=== PATIENT | male | born 1990 | race Caucasian/White ===

== ENCOUNTER → 2017-02-18 | Outpatient (CLI) | payer BC ==
[~2017-02-18] VITALS: Ht 182.9 cm; Wt 104.3 kg
[~2017-02-18] MED LIST: RANI150T6 PO; SINCALIDE 2 MCG in IV NORMAL SALINE 50ML 30 ML IV ONE
--- NOTE | 2017-02-18 11:46 | RAD ---
Limited abdominal ultrasound 02/18/2017 at 0943 hours Indication: Abdominal pain Comparison: None available Technique: Sonographic imaging of the right upper quadrant was performed utilizing grayscale and color Doppler. Findings: Liver is homogenous in echotexture without evidence for a focal mass lesion. Liver measures 18.0 cm. There is hepatopedal flow within the portal venous system. The gallbladder is normal in appearance without gallstones, gallbladder wall thickening or pericholecystic fluid. The common bile duct measures 3 mm. Right kidney measures 10.0 x 5.8 x 4.2 cm. There is no hydronephrosis or solid/cystic mass. No renal calculi. Results portions of the pancreas are normal. Aorta and IVC are within normal limits. No free fluid is identified in the right upper quadrant. Impression: No sonographic evidence for cholelithiasis.
--- NOTE | 2017-02-18 12:54 | RAD ---
Hepatobiliary scan 02/18/2017 at 1023 hours Indication: Abdominal pain Comparison: Abdominal ultrasound 02/18/2017 Technique: 5.5 mCi Choletec was administered intravenously. 2 mcg of Sincalide was administered. Findings: There is normal hepatobiliary uptake of radiotracer from the blood pool. There is normal radiotracer uptake identified within the gallbladder. There is prompt transit of radiotracer into the small bowel without evidence for enterogastric reflux. Gallbladder ejection fraction is 44.1%. Impression: Abnormal gallbladder ejection fraction of 44.1%. Findings are borderline and may reflect chronic cholecystitis.
== END | disposition home or self-care (01) ==
LOC: US 09:16
PROVIDERS: ATTEND Internal Medicine Gastroenterology
DX: R10.11 Right upper quadrant pain (principal)
CPT/HCPCS: 76705; 78226; 96374; 96375; A9537; J2805

== ENCOUNTER 2017-11-28 17:41 | Inpatient (IN) | payer BC ==
[~2017-11-28] VITALS: Ht 182.9 cm; Wt 108.0 kg
[~2017-11-28 17:41] MED LIST changes: +RANI150T21 PO; -RANI150T6 PO; -SINCALIDE 2 MCG in IV NORMAL SALINE 50ML 30 ML IV ONE
--- NOTE | 2017-11-28 17:45 | ED.ADGEN ---
Past History Past Medical History: Depression Past Surgical History: Other Smoking: Cigarettes Alcohol Use: Occasionally Drug Use: Amphetamine, Cocaine, Heroin, Marijuana, Methamphetamine, Phencyclidine, Other Social History Narrative: JUDAH Faulkner Adult General Chief Complaint Chief Complaint ".. I guess I want to get my mind clear... I have depression.. some suicide thoughts...".. " I did about 1/2 of Ketamine at about noon... " .."It is my favorite drug...".. " I ve been to Rehab...before but it been a long time ... I did okary for a while..."".. I feel dehydrated" HPI HPI Patient is a 27 year old male who presents with above complaint depression, suicidal ideation, and polysubstance abuse. Patient states he has an underlying history of depression and did attempt suicide one time previously. Patient denies any trauma other than he is grape juice right hand where he destroyed his guitar. Mother and sister at bedside. No recent travel. No history immunosuppression. Confusion and difficulty in focusing his thoughts. No specific suicide plan . Mother states last night when he had ripped up his shirt and was going to use it may himself. Review of Systems Review of Systems Constitutional: Denies fever or chills [] Eyes: Denies change in visual acuity, redness, or eye pain [] HENT: Denies nasal congestion or sore throat [] Respiratory: Denies cough or shortness of breath [] Cardiovascular: No additional information not addressed in HPI [] GI: Denies abdominal pain, nausea, vomiting, bloody stools or diarrhea [] : Denies dysuria or hematuria [] Musculoskeletal: Denies back pain or joint pain [] Integument: Denies rash or skin lesions [] Neurologic: Denies headache, focal weakness or sensory changes []complaints of confusion- after doing a half gram of ketamine Endocrine: Denies polyuria or polydipsia [] All other systems were reviewed and found to be within normal limits, except as documented in this note. Family History Family History Noncontributory Current Medications Current Medications Current Medications Medications (Trade) Dose Ordered Sig/Susie Start Time Stop Time Status Last Admin Dose Admin Multivitamins/ Minerals 10 ml/ Folic Acid 1 mg/ Thiamine HCl 100 mg/Dextrose/ Lactated Ringer's 1,011.2 ml @ 0 mls/hr 1X ONCE 11/28/17 18:45 11/28/17 18:46 DC 11/28/17 18:43 1,000 MLS/HR See nursing for home meds Allergies Allergies Allergies Coded Allergies Type Severity Reaction Last Updated Verified No Known Drug Allergies 02/18/17 No Physical Exam Physical Exam Constitutional: Moderately acute distress, non-toxic appearance. [] HENT: Normocephalic, atraumatic, bilateral external ears normal, oropharynx moist, no oral exudates, nose normal. [] Eyes: PERRLA, EOMI, conjunctiva normal, no discharge. [] Neck: Normal range of motion, no tenderness, supple, no stridor. [] Cardiovascular: Tachycardia Heart rate regular rhythm, no murmur [] Lungs & Thorax: Bilateral breath sounds clear to auscultation [] Abdomen: Bowel sounds normal, soft, no tenderness, no masses, no pulsatile masses. [] Skin: Warm, dry, no erythema, no rash. [] Back: No tenderness, no CVA tenderness. [] Extremities: No tenderness, no cyanosis, no clubbing, ROM intact, no edema. [] Abrasions to right hand Neurologic: Alert and oriented X 3, normal motor function, normal sensory function, no focal deficits noted. [] Psychologic: Affect anxious, judgement somewhat limited insight, mood depressed. Current Patient Data Vital Signs Vital Signs Date Time Temp Pulse Resp B/P (MAP) Pulse Ox O2 Delivery O2 Flow Rate FiO2 11/28/17 19:56 103 18 121/77 (92) 99 Room Air 11/28/17 18:05 98.1 Lab Results Laboratory Tests Test 11/28/17 18:19 11/28/17 18:22 11/28/17 19:05 White Blood Count 10.9 x10^3/uL (4.0-11.0) Red Blood Count 5.68 x10^6/uL (4.30-5.70) Hemoglobin 17.9 g/dL (13.0-17.5) H Hematocrit 51.5 % (39.0-53.0) Mean Corpuscular Volume 91 fL (79-100) Mean Corpuscular Hemoglobin 31 pg (25-35) Mean Corpuscular Hemoglobin Concent 35 g/dL (31-37) Red Cell Distribution Width 13.1 % (11.5-14.5) Platelet Count 248 x10^3/uL (140-400) Neutrophils (%) (Auto) 63 % (31-73) Lymphocytes (%) (Auto) 25 % (24-48) Monocytes (%) (Auto) 7 % (0-9) Eosinophils (%) (Auto) 5 % (0-3) H Basophils (%) (Auto) 1 % (0-3) Neutrophils # (Auto) 6.8 x10^3uL (1.8-7.7) Lymphocytes # (Auto) 2.7 x10^3/uL (1.0-4.8) Monocytes # (Auto) 0.8 x10^3/uL (0.0-1.1) Eosinophils # (Auto) 0.5 x10^3/uL (0.0-0.7) Basophils # (Auto) 0.1 x10^3/uL (0.0-0.2) Prothrombin Time 10.6 SEC (9.4-11.4) Prothrombin Time INR 1.0 (0.9-1.1) PTT 27 SEC (23-33) Sodium Level 147 mmol/L (136-145) H Potassium Level 3.7 mmol/L (3.5-5.1) Chloride Level 109 mmol/L (98-107) H Carbon Dioxide Level 24 mmol/L (21-32) Anion Gap 14 (6-14) Blood Urea Nitrogen 7 mg/dL (8-26) L Creatinine 0.9 mg/dL (0.7-1.3) Estimated GFR (Cockcroft-Gault) 102.0 Glucose Level 82 mg/dL (70-99) Calcium Level 9.0 mg/dL (8.5-10.1) Magnesium Level 2.1 mg/dL (1.8-2.4) Troponin I Quantitative < 0.017 ng/mL (0-0.055) Salicylates Level 4.3 mg/dL (2.8-20.0) Salicylate Last Dose Date Unknown Salicylate Last Dose Time Unknown Acetaminophen Level < 2.0 mcg/mL (10-30) L Acetaminophen Last Dose Date Unknown Acetaminophen Last Dose Time Unknown Ethyl Alcohol Level 90 mg/dL (0-10) H Urine Collection Type Unknown Urine Color Straw Urine Clarity Clear Urine pH 6.0 Urine Specific [place] <=1.005 Urine Protein Neg (NEG-TRACE) Urine Glucose (UA) Neg mg/dL (NEG) Urine Ketones (Stick) Neg mg/dL (NEG) Urine Blood Neg (NEG) Urine Nitrite Neg (NEG) Urine Bilirubin Neg (NEG) Urine Urobilinogen Dipstick 0.2 mg/dL (0.2 mg/dL) Urine Leukocyte Esterase Neg (NEG) Urine RBC Rare /HPF (0-2) Urine WBC Occ /HPF (0-4) Urine Squamous Epithelial Cells Occ /LPF Urine Bacteria 0 /HPF (0-FEW) Urine Opiates Screen Neg (NEG) Urine Methadone Screen Neg (NEG) Urine Barbiturates Neg (NEG) Urine Phencyclidine Screen Neg (NEG) Urine Amphetamine/Methamphetamine Neg (NEG) Urine Benzodiazepines Screen Pos (NEG) Urine Cocaine Screen Pos (NEG) Urine Cannabinoids Screen Pos (NEG) Urine Ethyl Alcohol Pos (NEG) Lactic Acid Level 1.9 mmol/L (0.4-2.0) EKG EKG My interpretation of EKG shows a sinus tachycardia at 101 bpm. There is some nonspecific contour abnormalities anterior lateral leads. But no findings of acute STEMI with contralateral changes.[] Radiology/Procedures Radiology/Procedures I interpretation of chest x-ray shows[] Course & Med Decision Making Course & Med Decision Making Pertinent Labs and Imaging studies reviewed. (See chart for details) Telepsych. Eval. - Dr. Zainab Garcia MD- See Report for details. Recommend Hospital Admit until clear of Polysubstance- possible placement in AM Discussed presentation, testing and tx. plan with Dr. Vigil- Consult Dr. Mccann in AM. [] Final Impression Final Impression 1. Suicidal Ideation 2. []Depression 3. Polysubstance Abuse 4. Confusion 5. Dehydration Dragon Disclaimer Dragon Disclaimer This electronic medical record was generated, in whole or in part, using a voice recognition dictation system. NICKOLAS POTTS MD November 28, 2017 17:45
--- NOTE | 2017-11-28 18:18 | EKG ---
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
[2017-11-28] MEDS ORDERED: MVI, ADULT NO.4 WITH VIT K 10 ML, FOLIC ACID 1 MG, THIAMINE 100 MG in IV DEXTROSE 5%-LA... IV ONE ×4 (18:45)
[2017-11-28 18:46] LABS: BASO # 0.1 x10^3/uL (0.0-0.2); BASO % 1 % (0-3); EOS # 0.5 x10^3/uL (0.0-0.7); EOS % 5 % (0-3); HEMATOCRIT 51.5 % (39.0-53.0); HEMOGLOBIN 17.9 g/dL (13.0-17.5); LYMPH # 2.7 x10^3/uL (1.0-4.8); LYMPH % 25 % (24-48); MEAN CORPUSCULAR HEMOGLOBIN 31 pg (25-35); MEAN CORPUSCULAR HGB CONC 35 g/dL (31-37); MEAN CORPUSCULAR VOLUME 91 fL (79-100); MONO # 0.8 x10^3/uL (0.0-1.1); MONO % 7 % (0-9); NEUT # 6.8 x10^3uL (1.8-7.7); NEUT % 63 % (31-73); PLATELET COUNT 248 x10^3/uL (140-400); RED BLOOD COUNT 5.68 x10^6/uL (4.30-5.70); RED CELL DISTRIBUTION WIDTH 13.1 % (11.5-14.5); WHITE BLOOD COUNT 10.9 x10^3/uL (4.0-11.0)
[2017-11-28 18:48] LABS: CREATININE 0.9 mg/dL (0.7-1.3); ETHANOL 90 mg/dL (0-10); MAGNESIUM 2.1 mg/dL (1.8-2.4); POTASSIUM 3.7 mmol/L (3.5-5.1); SALIC 4.3 mg/dL (2.8-20.0)
[2017-11-28 18:50] LABS: BARBITURATES NEG (NEG); BENZODIAZEPINES POS (NEG); CANNABINOIDS POS (NEG); COCAINE POS (NEG); METHADONE NEG (NEG); OPIATES NEG (NEG); PHENCYCLIDINE NEG (NEG)
[2017-11-28 18:51] LABS: ACETAMIN < 2.0 mcg/mL (10-30)
[2017-11-28 18:51] LABS: AMPHETAMINE/METHAMPHETAMINE NEG (NEG)
[2017-11-28 18:56] LABS: CLARITY,URINE CLEAR; COLOR,URINE STRAW; GLUCOSE,URINE NEG (NEG)
[2017-11-28 18:57] LABS: BACTERIA,URINE 0 /HPF (0-FEW); BILIRUBIN,URINE NEG (NEG); NITRITE,URINE NEG (NEG); RBC,URINE RARE /HPF (0-2); SQUAMOUS EPITHELIAL CELL,UR OCC /LPF; UROBILINOGEN,URINE 0.2 mg/dL (0.2 mg/dL); WBC,URINE OCC /HPF (0-4)
--- NOTE | 2017-11-28 22:16 | RAD ---
PA and lateral chest radiographs 11/28/2017 CLINICAL HISTORY: Overdose. Chest pain. Two PA and a lateral digital radiographs of the chest were obtained. The cardiac and mediastinal silhouettes are within normal limits in size and configuration. No acute pulmonary infiltrate is seen. No pleural effusion or pneumothorax is noted. IMPRESSION: No radiographic evidence of active cardiac pulmonary disease. Electronically signed by: Wan Martinez MD (11/28/2017 10:13 PM) [facility]
[2017-11-28] MEDS: IV RINGERS SOLUTION,LACTATED 1,000 ML IV SCH (23:46)
[2017-11-29 00:01] LABS: ACETAMIN < 2.0 mcg/mL (10-30); SALIC 3.2 mg/dL (2.8-20.0)
[2017-11-29 00:03] VITALS: BP 121/76
[2017-11-29] MEDS: IV RINGERS SOLUTION,LACTATED 1,000 ML IV SCH ×4 (02:15→17:25)
[2017-11-29 06:12] VITALS: BP 106/62
[2017-11-29 06:24] LABS: CALCIUM 8.6 mg/dL (8.5-10.1); CREATININE 0.9 mg/dL (0.7-1.3); POTASSIUM 3.7 mmol/L (3.5-5.1)
[2017-11-29 06:35] LABS: BASO % 1 % (0-3); EOS # 0.5 x10^3/uL (0.0-0.7); EOS % 5 % (0-3); HEMOGLOBIN 16.6 g/dL (13.0-17.5); LYMPH # 2.9 x10^3/uL (1.0-4.8); LYMPH % 28 % (24-48); MEAN CORPUSCULAR HEMOGLOBIN 31 pg (25-35); MEAN CORPUSCULAR HGB CONC 35 g/dL (31-37); MEAN CORPUSCULAR VOLUME 91 fL (79-100); MONO # 0.6 x10^3/uL (0.0-1.1); MONO % 6 % (0-9); NEUT # 6.4 x10^3uL (1.8-7.7); NEUT % 61 % (31-73); PLATELET COUNT 233 x10^3/uL (140-400); RED CELL DISTRIBUTION WIDTH 12.7 % (11.5-14.5); WHITE BLOOD COUNT 10.5 x10^3/uL (4.0-11.0)
[2017-11-29 07:40] VITALS: BP 137/84
[2017-11-29] MEDS ORDERED: NICOTINE 21MG PATCH. TD SCH (10:00)
[2017-11-29] MEDS ORDERED: ACETAMINOPHEN 500 MG TABLET PO PRN (10:00)
[2017-11-29] MEDS ORDERED: chlordiazePOXIDE HCL 25 MG CAPSULE PO PRN (10:00)
[2017-11-29 10:16] LABS: ALBUMIN 3.2 g/dL (3.4-5.0); DIRECT BILIRUBIN 0.1 mg/dL (0.0-0.2); TOTAL BILIRUBIN 0.6 mg/dL (0.2-1.0); TOTAL PROTEIN 6.1 g/dL (6.4-8.2)
[2017-11-29] MEDS ORDERED: ONDANSETRON ODT 4 MG TAB.RAPDIS PO PRN (10:30)
--- NOTE | 2017-11-29 11:44 | RAD ---
History: Right hand pain. Comparison: None. Findings: PA and oblique lateral views of the right hand. Evaluation for acute traumatic injury is limited by lack of 3rd view. No acute fracture or dislocation is identified. No erosive changes are seen. No significant degeneration is identified. Impression: Unremarkable right hand radiographs. Electronically signed by: Khoa Hughes MD (11/29/2017 11:41 AM) [facility]
[2017-11-29] MEDS ORDERED: KETOROLAC 30 MG/ML VIAL. IV PRN (12:45)
[2017-11-29 16:33] VITALS: BP 130/71
--- NOTE | 2017-11-29 18:37 | HP ---
ADMIT DATE: 11/28/2017 HISTORY OF PRESENT ILLNESS: A 27-year-old gentleman came in through the Emergency Room markedly intoxicated. The patient is depressed, has suicidal ideation. He did about 1/2 something or other of ketamine, his favorite drug as well as cocaine, amphetamines, marijuana and so forth. The patient was admitted for polysubstance abuse, suicidal ideation, and the like. He was placed on a CIWA protocol as well as consult with Psychiatry as well. PAST MEDICAL HISTORY: Severe depression. FAMILY HISTORY: Depression. SOCIAL HISTORY: He smokes cigarettes, occasional alcohol, but mostly amphetamine, cocaine, heroin, marijuana, methamphetamine, phencyclidine, and ketamine. ALLERGIES: The patient has no known drug allergies. REVIEW OF SYSTEMS: Outside of a marked depression and confusion. Denies chest pain, shortness of breath. Denies abdominal pain. Denies any melena, hematemesis, and neurologically intact. Did have some right hand injury as he was hitting a wall, I believe. PHYSICAL EXAMINATION: GENERAL: This is a well-developed, well-nourished male, looks very unkempt. VITAL SIGNS: Blood pressure 130/70, respiration 18, pulse 71, temperature 98.3. HEENT: The patient's head was atraumatic, normocephalic. Eyes: PERRLA without jaundice. Mouth and throat were normal. NECK: Supple. LUNGS: Clear. CARDIOVASCULAR: Regular sinus rhythm. ABDOMEN: Right hand sore and tender. Abdomen is soft and nontender. EXTREMITIES: No clubbing, cyanosis or edema. NEUROLOGIC: Alert, but depressed, poor content of his speech and sometimes not making much in the way of sense. The patient otherwise was placed on a CIWA protocol. LABORATORY DATA: His CBC and chemistries were basically unremarkable except for the low albumin and protein and of course toxicology report showing signs of benzos, cocaine, marijuana, and alcohol. Ketamine was not tested for. UA was unremarkable. IMPRESSION: Polysubstance abuse, depression with suicidal ideation. The patient was placed on Clinical [place] Withdrawal Assessment of Alcohol and suicidal precautions and consult with Psychiatry, keep him in the Intensive Care Unit for close monitoring. MODESTA ZAFAR MD DR: YENNI/gordon JOB#: [id number] / [id number]
--- NOTE | 2017-11-29 18:55 | PDOC ---
Exam Note: [place]o Note: Please also refer to the separate dictated note~for this date of service dictated separately.~Patient seen individually. Discussed the patient with Nursing staff reviewed the chart.~Reviewed interim history and current functioning. Reviewed vital signs,~Labs/ Radiology~and current medications noted below. Continue current treatment with the changes noted in the dictated addendum note Assessment: Vital Signs: Vital Signs Date Time Temp Pulse Resp B/P (MAP) Pulse Ox O2 Delivery O2 Flow Rate FiO2 11/29/17 16:33 98.3 71 18 130/71 (90) 94 Room Air I&O Intake and Output 11/29/17 07:00 Intake Total 2078.2 ml Balance 2078.2 ml Intake Oral 70 ml IV Total 2008.2 ml # Voids 2 # Bowel Movements 1 Labs: Laboratory Tests Test 11/28/17 19:05 11/28/17 23:40 11/29/17 05:48 Lactic Acid Level 1.9 mmol/L (0.4-2.0) Salicylates Level 3.2 mg/dL (2.8-20.0) Salicylate Last Dose Date Unknown Salicylate Last Dose Time Unknown Acetaminophen Level < 2.0 mcg/mL (10-30) L Acetaminophen Last Dose Date Unknown Acetaminophen Last Dose Time Unknown White Blood Count 10.5 x10^3/uL (4.0-11.0) Red Blood Count 5.30 x10^6/uL (4.30-5.70) Hemoglobin 16.6 g/dL (13.0-17.5) Hematocrit 48.0 % (39.0-53.0) Mean Corpuscular Volume 91 fL (79-100) Mean Corpuscular Hemoglobin 31 pg (25-35) Mean Corpuscular Hemoglobin Concent 35 g/dL (31-37) Red Cell Distribution Width 12.7 % (11.5-14.5) Platelet Count 233 x10^3/uL (140-400) Neutrophils (%) (Auto) 61 % (31-73) Lymphocytes (%) (Auto) 28 % (24-48) Monocytes (%) (Auto) 6 % (0-9) Eosinophils (%) (Auto) 5 % (0-3) H Basophils (%) (Auto) 1 % (0-3) Neutrophils # (Auto) 6.4 x10^3uL (1.8-7.7) Lymphocytes # (Auto) 2.9 x10^3/uL (1.0-4.8) Monocytes # (Auto) 0.6 x10^3/uL (0.0-1.1) Eosinophils # (Auto) 0.5 x10^3/uL (0.0-0.7) Basophils # (Auto) 0.0 x10^3/uL (0.0-0.2) Sodium Level 145 mmol/L (136-145) Potassium Level 3.7 mmol/L (3.5-5.1) Chloride Level 108 mmol/L (98-107) H Carbon Dioxide Level 28 mmol/L (21-32) Anion Gap 9 (6-14) Blood Urea Nitrogen 9 mg/dL (8-26) Creatinine 0.9 mg/dL (0.7-1.3) Estimated GFR (Cockcroft-Gault) 102.0 Glucose Level 99 mg/dL (70-99) Calcium Level 8.6 mg/dL (8.5-10.1) Total Bilirubin 0.6 mg/dL (0.2-1.0) Direct Bilirubin 0.1 mg/dL (0.0-0.2) Aspartate Amino Transferase (AST) 13 U/L (15-37) L Alanine Aminotransferase (ALT) 19 U/L (16-63) Alkaline Phosphatase 61 U/L (46-116) Total Protein 6.1 g/dL (6.4-8.2) L Albumin 3.2 g/dL (3.4-5.0) L Current Medications: Meds: Current Medications Multivitamins/ Minerals 10 ml/ Folic Acid 1 mg/ Thiamine HCl 100 mg/Dextrose/ Lactated Ringer's 1,011.2 ml @ 0 mls/hr 1X ONCE IV Last administered on at 18:43; Start 11/28/17 at 18:45; Stop 11/28/17 at 18:46; Status DC Lactated Ringer's 1,000 ml @ 200 mls/hr Q5H IV Last administered on 11/29/17at 17:25; Start 11/28/17 at 21:15 Famotidine (Pepcid) 20 mg BID PO ; Start 11/29/17 at 21:00 Acetaminophen (Tylenol) 1,000 mg PRN Q6HRS PRN PO pain; Start 11/29/17 at 10:00 Multivitamins/ Minerals 10 ml/ Thiamine HCl 100 mg/Folic Acid 1 mg/Sodium Chloride 1,011.2 ml @ 100 mls/ hr DAILY IV ; Start 11/30/17 at 09:00; Stop at 08:59 Chlordiazepoxide (Librium) 50 mg PRN Q1HR PRN PO For CIWA 8-14; Start 11/29/17 at 10:00 Nicotine (Nicoderm Cq 21mg) 1 patch DAILY TD Last administered on 11/29/17at 10: 22; Start 11/29/17 at 10:00 Ondansetron HCl (Zofran Odt) 4 mg PRN Q6HRS PRN PO NAUSEA/VOMITING; Start 11/29 at 10:30 Ketorolac Tromethamine (Toradol) 30 mg PRN Q6HRS PRN IV PAIN Last administered on 11/29/17at 15:54; Start 11/29/17 at 12:45; Stop 12/04/17 at 12:44 Active Scripts Active Reported Zantac (Ranitidine Hcl) 150 Mg Tablet 1 Tab PO BID I have reviewed the current psychotropics carefully including drug interactions. Risk benefit ratio favors no change other than as noted in my dictated progress note. Diagnosis: Problems: (1) Anxiety disorder (2) Alcohol withdrawal syndrome (3) Alcohol dependence (4) Major depressive disorder, recurrent episode (5) Suicide ideation JOSE ARMANDO PEDERSEN MD November 29, 2017 18:55
[2017-11-29] MEDS ORDERED: FAMOTIDINE 20 MG TABLET PO SCH (21:00)
[2017-11-30] MEDS ORDERED: MVI, ADULT NO.4 WITH VIT K 10 ML, THIAMINE 100 MG, FOLIC ACID 1 MG in IV NORMAL SALINE ... IV SCH ×4 (09:00)
--- NOTE | 2017-12-01 18:11 | CONS ---
DATE OF CONSULTATION: 11/29/2017 This is a late entry for 11/29/2017 and covers the elements not covered in my initial note of 11/29/2017. IDENTIFYING DATA: The patient is a 27-year-old male seen in ICU bed 3, [facility], for a psychiatric consult requested by Dr. Vigil after the patient was admitted with depression, history of polysubstance abuse, making suicidal statements at admission while he was intoxicated. I met with the patient individually and later talked over the telephone with his mother who is closely involved in his care. Discussed with nursing staff, reviewed the chart. CHIEF COMPLAINT: "Nothing has been working out. 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 I have been drinking about a gallon of liquor a week." HISTORY OF PRESENT ILLNESS: The patient denies any blackouts, DUIs, DTs or shakes. He has also been using other drugs including ketamine, cocaine, amphetamines and marijuana. Since being in ICU bed 3, he has been on the withdrawal protocol and tolerated this reasonably. He admits to chronic longstanding suicidal ideation. Denies any active plans or intent to hurt himself now that he is not intoxicated anymore. His mother confirms this to me over the telephone as well since I talked to her specifically since the patient was not agreeable to inpatient psychiatric hospitalization and will be transitioning to outpatient with followup at [facility] and the mother is in agreement with this. PAST PSYCHIATRIC HISTORY: Positive for long history of ADHD and he has been on stimulants since elementary school through high school. Mother states once he turned 19, he stopped his medications and that has been "downhill" since then. PAST MEDICAL HISTORY: In addition to what is noted above, he has a history of amphetamine abuse, cocaine, heroin, marijuana, methamphetamines, phencyclidine, and ketamine abuse. ALLERGIES: Negative. FAMILY HISTORY: Noncontributory. SOCIAL HISTORY: The patient lives in an apartment. Mother states he has several friends who are closely involved in his care and she checks with his friends on a regular basis about his safety and therefore felt very comfortable that he was agreeing to go to outpatient at [facility], even though he is refusing inpatient hospitalization. There is a questionable history of the patient having had some abuse while he was in juvenile alf in the past. MENTAL STATUS EXAM: The patient was seen individually. He is reasonably oriented, quite anxious, restless, distractable. Eye contact is good. He has sports a valladares. Speech is coherent; at times, somewhat rapid. Abstraction fair, computation impaired, language function intact. Mood and affect dysphoric, anxious. He admits to passive suicidal ideation. Denies any active suicidal ideation. No active intent to hurt himself, no plan or attempt in the very recent past. Attention span short. Language function intact; otherwise, cognitively he is reasonably intact. LABORATORY DATA: Reviewed. IMPRESSION: History of polysubstance abuse dependence, history of attention-deficit/hyperactivity disorder, adjustment disorder with depressed mood and anxiety. Rest as above. PLAN: I had a lengthy discussion with the patient recommending inpatient psychiatric hospitalization, but he is not agreeable to this. He is not actively suicidal and would not meet criteria for an involuntary commitment. The mother does not feel he needs inpatient and is wanting to go along with what the patient wants to do. He should followup at the [facility] and the mother states she will make sure he goes in for the walk-in clinic Saturday at the [facility]. Dr. Vigil, thank you for the opportunity to participate in your patient's care. We will follow with you. JOSE ARMANDO PEDERSEN MD DR: CORINA/gordon JOB#: [id number] / [id number]
== END 2017-11-29 19:40 | disposition left against medical advice (07) | DRG 640 ==
LOC: ER 17:41 → ICU 20:32
PROVIDERS: ADMIT Family Medicine; ATTEND Family Medicine
DX: E86.0 Dehydration (principal); G92 Toxic encephalopathy; R45.851 Suicidal ideations; F33.9 Major depressive disorder, recurrent, unspecified; F10.239 Alcohol dependence with withdrawal, unspecified; F12.10 Cannabis abuse, uncomplicated; F15.10 Other stimulant abuse, uncomplicated; F17.210 Nicotine dependence, cigarettes, uncomplicated; F41.9 Anxiety disorder, unspecified; F43.23 Adjustment disorder with mixed anxiety and depressed mood; F90.9 Attention-deficit hyperactivity disorder, unspecified type; F14.10 Cocaine abuse, uncomplicated; Z81.8 Family history of other mental and behavioral disorders; Z79.899 Other long term (current) drug therapy; F19.129 Other psychoactive substance abuse with intoxication, unspecified
CPT/HCPCS: 36415; 71046; 73120; 80048; 80076; 80307; 81001; 83605; 83735; 84484; 85025; 85610; 85730; 87641; 93005; 96365; G0238; G0480; G6039; J1885; J7120; 82003; 99285-25; G0479

== ENCOUNTER 2017-11-29 22:00 | Emergency (ER) | payer BC ==
[~2017-11-29] VITALS: Ht 182.9 cm; Wt 108.0 kg
--- NOTE | 2017-11-29 22:17 | ED.ADGEN ---
Past History Past Medical History: Depression, Other Past Surgical History: Other Smoking: Cigarettes Alcohol Use: Occasionally Drug Use: Amphetamine, Benzodiazepine, Cocaine, Heroin, Marijuana, Methamphetamine, Opiates, Phencyclidine, Other Adult General Chief Complaint Chief Complaint - Pt. min. responsive to noxious stimuli- Pt. eventually responsive- yelling. Pt. admits to drinking 1/2 Liter of Seagram's since leaving AMA . HPI HPI Patient is a 27 year old male who presents with above hx and decrease mental status. Pt. admitted yesterday for Polysubstance abuse and suicidal ideation. Patient waiting till drugs clear to system for repeat psych eval. And possible placement. Patient however left the ICU unit at [facility] earlier today AMA. Pt. return in a very intoxicated state. Pt. became more alert after IV established. Pt. now up and walking around demanding discharge. Pt. demands he be discharged, states he is not suicidal or depressed. He just " Fucking drunk.". Pt. denies any polysubstance abuse since leave the ICU earlier today. Review of Systems Review of Systems Constitutional: Denies fever or chills [] Eyes: Denies change in visual acuity, redness, or eye pain [] HENT: Denies nasal congestion or sore throat [] Respiratory: Denies cough or shortness of breath [] Cardiovascular: No additional information not addressed in HPI [] GI: Denies abdominal pain, nausea, vomiting, bloody stools or diarrhea [] : Denies dysuria or hematuria [] Musculoskeletal: Denies back pain or joint pain [] Integument: Denies rash or skin lesions [] Neurologic: Denies headache, focal weakness or sensory changes [] Endocrine: Denies polyuria or polydipsia [] All other systems were reviewed and found to be within normal limits, except as documented in this note. Family History Family History Non-contributory Current Medications Current Medications Current Medications Medications (Trade) Dose Ordered Sig/Susie Start Time Stop Time Status Last Admin Dose Admin Multivitamins/ Minerals 10 ml/ Folic Acid 1 mg/ Thiamine HCl 100 mg/Dextrose/ Lactated Ringer's 1,011.2 ml @ 0 mls/hr 1X ONCE 11/29/17 23:00 11/29/17 23:01 DC Allergies Allergies Allergies Coded Allergies Type Severity Reaction Last Updated Verified No Known Drug Allergies 02/18/17 No Physical Exam Physical Exam Constitutional: Moderately acute distress, very intoxicated in appearance. [] HENT: Normocephalic, atraumatic, bilateral external ears normal, oropharynx moist, no oral exudates, nose normal. [Nasal stud. Eyes: PERRLA, EOMI, conjunctiva normal, no discharge. [] Neck: Normal range of motion, no tenderness, supple, no stridor. [] Cardiovascular:Heart rate regular rhythm, no murmur [] Lungs & Thorax: Bilateral breath sounds equal at apex with scattered wheezes on auscultation [] Abdomen: Bowel sounds normal, soft, no tenderness, no masses, no pulsatile masses. [] Skin: Warm, dry, no erythema, no rash. [] Back: No tenderness, no CVA tenderness. [] Extremities: No tenderness, no cyanosis, no clubbing, ROM intact, no edema. [] Neurologic: oriented X 3, normal motor function, normal sensory function, no focal deficits noted. [Discoordinated. ] Psychologic: Affect depressed to agitated. judgement. very poor insight, mood depressed. Current Patient Data Lab Results Laboratory Tests Test 11/29/17 22:13 11/29/17 22:17 White Blood Count 13.9 x10^3/uL (4.0-11.0) H Red Blood Count 6.04 x10^6/uL (4.30-5.70) H Hemoglobin 18.9 g/dL (13.0-17.5) H Hematocrit 53.9 % (39.0-53.0) H Mean Corpuscular Volume 89 fL (79-100) Mean Corpuscular Hemoglobin 31 pg (25-35) Mean Corpuscular Hemoglobin Concent 35 g/dL (31-37) Red Cell Distribution Width 12.9 % (11.5-14.5) Platelet Count 289 x10^3/uL (140-400) Neutrophils (%) (Auto) 59 % (31-73) Lymphocytes (%) (Auto) 30 % (24-48) Monocytes (%) (Auto) 7 % (0-9) Eosinophils (%) (Auto) 3 % (0-3) Basophils (%) (Auto) 1 % (0-3) Neutrophils # (Auto) 8.2 x10^3uL (1.8-7.7) H Lymphocytes # (Auto) 4.1 x10^3/uL (1.0-4.8) Monocytes # (Auto) 0.9 x10^3/uL (0.0-1.1) Eosinophils # (Auto) 0.4 x10^3/uL (0.0-0.7) Basophils # (Auto) 0.1 x10^3/uL (0.0-0.2) Prothrombin Time 10.4 SEC (9.4-11.4) Prothrombin Time INR 1.0 (0.9-1.1) PTT 27 SEC (23-33) Sodium Level 146 mmol/L (136-145) H Potassium Level 3.3 mmol/L (3.5-5.1) L Chloride Level 107 mmol/L (98-107) Carbon Dioxide Level 24 mmol/L (21-32) Anion Gap 15 (6-14) H Blood Urea Nitrogen 9 mg/dL (8-26) Creatinine 1.2 mg/dL (0.7-1.3) Estimated GFR (Cockcroft-Gault) 73.2 Glucose Level 94 mg/dL (70-99) Calcium Level 9.1 mg/dL (8.5-10.1) Magnesium Level 1.9 mg/dL (1.8-2.4) Creatine Kinase 119 U/L (39-308) Creatine Kinase MB (Mass) 0.7 ng/mL (0.0-3.6) Creatine Kinase MB Relative Index 0.6 % (0-4) Troponin I Quantitative < 0.017 ng/mL (0-0.055) Ethyl Alcohol Level 210 mg/dL (0-10) H Glucose (Fingerstick) 97 mg/dL (70-99) EKG EKG My interpretation EKG shows a sinus rhythm at 79 bpm. No acute morphology[] no findings of acute STEMI with contralateral changes. Radiology/Procedures Radiology/Procedures Pt. refused x-rays[] Course & Med Decision Making Course & Med Decision Making Pertinent Labs and Imaging studies reviewed. (See chart for details) Pt. refusing tx. currently. Pt. ripped out his IV. Pt. demanding discharge. Sister will accept pt in discharge. Begged pt. to reconsider his decision to leave. - 2300. Pt. states he is not suicidal or homicidal. Patient states he has a right refused treatment and medication. Patient encouraged to follow up counseling Center or inpatient alcohol rehabilitation program. Patient encouraged to drink fruit juices because his low potassium. Patient encouraged follow-up primary care & return anytime for further for evaluation.and tx. Patient ambulatory without problems when he left with his sister. She stated she would look after him until he got home and would get his friends to help manage his behavior. Final Impression Final Impression 1. Mental Status change 2. Hx. of Depression 3. Hx. of Polysubstance Abuse[] 4. Alcohol Intoxication 210 5. Leukocytosis 13.9 6. Hypokalemia 3.3 Dragon Disclaimer Dragon Disclaimer This electronic medical record was generated, in whole or in part, using a voice recognition dictation system. NICKOLAS POTTS MD November 29, 2017 22:17
--- NOTE | 2017-11-29 22:30 | EKG ---
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
[2017-11-29 22:39] LABS: BASO # 0.1 x10^3/uL (0.0-0.2); BASO % 1 % (0-3); EOS # 0.4 x10^3/uL (0.0-0.7); EOS % 3 % (0-3); HEMATOCRIT 53.9 % (39.0-53.0); HEMOGLOBIN 18.9 g/dL (13.0-17.5); LYMPH # 4.1 x10^3/uL (1.0-4.8); LYMPH % 30 % (24-48); MEAN CORPUSCULAR HEMOGLOBIN 31 pg (25-35); MEAN CORPUSCULAR HGB CONC 35 g/dL (31-37); MEAN CORPUSCULAR VOLUME 89 fL (79-100); MONO # 0.9 x10^3/uL (0.0-1.1); MONO % 7 % (0-9); NEUT # 8.2 x10^3uL (1.8-7.7); NEUT % 59 % (31-73); PLATELET COUNT 289 x10^3/uL (140-400); RED BLOOD COUNT 6.04 x10^6/uL (4.30-5.70); RED CELL DISTRIBUTION WIDTH 12.9 % (11.5-14.5); WHITE BLOOD COUNT 13.9 x10^3/uL (4.0-11.0)
[2017-11-29 22:45] VITALS: BP 135/85
[2017-11-29 22:46] LABS: CALCIUM 9.1 mg/dL (8.5-10.1); CREATININE 1.2 mg/dL (0.7-1.3); GFR 73.2; MAGNESIUM 1.9 mg/dL (1.8-2.4); POTASSIUM 3.3 mmol/L (3.5-5.1)
[2017-11-29] MEDS ORDERED: MVI, ADULT NO.4 WITH VIT K 10 ML, FOLIC ACID 1 MG, THIAMINE 100 MG in IV DEXTROSE 5%-LA... IV ONE ×4 (23:00)
== END 2017-11-29 22:45 | disposition home or self-care (01) ==
LOC: ER 22:00
DX: R41.82 Altered mental status, unspecified (principal); F32.9 Major depressive disorder, single episode, unspecified; F10.129 Alcohol abuse with intoxication, unspecified; D72.829 Elevated white blood cell count, unspecified; E87.6 Hypokalemia; F15.10 Other stimulant abuse, uncomplicated; F12.10 Cannabis abuse, uncomplicated; F11.10 Opioid abuse, uncomplicated; F19.10 Other psychoactive substance abuse, uncomplicated; F17.210 Nicotine dependence, cigarettes, uncomplicated
CPT/HCPCS: 36415; 80048; 82553; 82947; 83735; 84484; 85025; 85610; 85730; 93005; 99285; G0480

== ENCOUNTER 2021-02-27 20:59 | Emergency (ER) | payer BC ==
[~2021-02-27] VITALS: Ht 182.9 cm; Wt 124.0 kg
[~2021-02-27 20:59] MED LIST changes: +RANI-376 PO; -RANI150T21 PO
[2021-02-27] MEDS ORDERED: IV NORMAL SALINE 1,000ML 1,000 ML IV ONE (21:30)
[2021-02-27] MEDS ORDERED: ONDANSETRON PF 4 MG/2 ML VIAL. IVP ONE (21:30)
[2021-02-27 21:35] VITALS: BP 166/119
--- NOTE | 2021-02-27 21:56 | PHYS DOC ---
Past History Past Medical History: Anxiety, Depression, Other Past Surgical History: Cholecystectomy Smoking: Cigarettes Alcohol Use: Occasionally Drug Use: Amphetamine, Benzodiazepine, Cocaine, Heroin, Marijuana, Methamphetamine, Opiates, Phencyclidine, Other General Adult EDM: Chief Complaint: ABDOMINAL PAIN HPI: HPI: 30-year-old male presents with epigastric tuan pain. He has had pain intermittently for the last 3 years. His current pain started about 3 days ago while he was drinking alcohol and hanging out at some kind of music festival. He does not have a gallbladder. He is worried about gastritis or an ulcer. He has been vomiting today multiple times and unable to keep anything down. He also is concerned that his emesis has stomach acid in it. He denies fever or chills. No history of pancreatitis. Review of Systems: Review of Systems: Constitutional: Denies fever or chills Eyes: Denies change in visual acuity HENT: Denies nasal congestion or sore throat Respiratory: Denies cough or shortness of breath Cardiovascular: Denies chest pain or edema GI: Denies abdominal pain, nausea, vomiting, bloody stools or diarrhea : Denies dysuria Musculoskeletal: Denies back pain or joint pain Integument: Denies rash Neurologic: Denies headache, focal weakness or sensory changes Endocrine: Denies polyuria or polydipsia Lymphatic: Denies swollen glands Psychiatric: Denies depression or anxiety Current Medications: Current Meds: Current Medications Medications (Trade) Dose Ordered Sig/Susie Start Time Stop Time Status Last Admin Dose Admin Famotidine (Pepcid Vial) 20 mg 1X ONCE 02/27/21 22:00 02/27/21 22:01 UNV Multi-Ingredient Mouthwash/Gargle (Gi Cocktail) 20 ml 1X ONCE 02/27/21 22:00 02/27/21 22:01 UNV Ondansetron HCl (Zofran) 4 mg 1X ONCE 02/27/21 21:30 02/27/21 21:42 DC Pantoprazole Sodium (Protonix Vial) 40 mg 1X ONCE 02/27/21 22:00 02/27/21 22:01 UNV Sodium Chloride 1,000 ml @ 1,000 mls/hr 1X ONCE 02/27/21 21:30 02/27/21 22:29 Allergies: Allergies: Allergies Coded Allergies Type Severity Reaction Last Updated Verified No Known Drug Allergies 02/18/17 No Physical Exam: PE: Constitutional: Well developed, well nourished, no acute distress, non-toxic appearance. [] HENT: Normocephalic, atraumatic, bilateral external ears normal, oropharynx moist, no oral exudates, nose normal. [] Eyes: PERRLA, EOMI, conjunctiva normal, no discharge. [] Neck: Normal range of motion, no tenderness, supple, no stridor. [] Cardiovascular:Heart rate regular rhythm, no murmur [] Lungs & Thorax: Bilateral breath sounds clear to auscultation [] Abdomen: Bowel sounds normal, soft, no tenderness, no masses, no pulsatile masses. [] Skin: Warm, dry, no erythema, no rash. [] Back: No tenderness, no CVA tenderness. [] Extremities: No tenderness, no cyanosis, no clubbing, ROM intact, no edema. [] Neurologic: Alert and oriented X 3, normal motor function, normal sensory function, no focal deficits noted. [] Psychologic: Affect normal, judgement normal, mood normal. [] Current Patient Data: Vital Signs: Vital Signs Date Time Temp Pulse Resp B/P (MAP) Pulse Ox O2 Delivery O2 Flow Rate FiO2 02/27/21 21:35 97.9 107 20 166/119 96 EKG: EKG: [] Radiology/Procedures: Radiology/Procedures: [] Impressions: PQRS Compliance Statement: One or more of the following individualized dose reduction techniques were utilized for this examination: 1. Automated exposure control 2. Adjustment of the mA and/or kV according to patient size 3. Use of iterative reconstruction technique CT ABDOMEN+PELVIS W Clinical Indication: Reason: epigastric pain, x3days, H/O DRUG ALCOHOL USE, Comparison: None. Technique: Helical CT imaging of the abdomen and pelvis is performed after 75 cc of Omnipaque 300 IV contrast. Oral contrast not administered. Findings: Minimal bilateral dependent atelectasis. The cardiac size is normal. Cholecystectomy. The liver, spleen, pancreas, adrenal glands, abdominal aorta, and kidneys are normal. The stomach is unremarkable. There is no small bowel obstruction. The appendix is normal. There is no colon wall thickening. No abdominal adenopathy. The urinary bladder is normal. Prostate and seminal vesicles are normal. There is no pelvic free fluid. There is bilateral L5 spondylolysis. No spondylolisthesis is seen. IMPRESSION: No acute abdominal or pelvic abnormality. Electronically signed by: Mehrdad Carson MD (02/27/2021 11:04 PM) [facility] DICTATED AND SIGNED BY: MEHRDAD CARSON MD DATE: 02/27/210 CC: TRISTIAN TIWARI DO; MODESTA ZAFAR MD ~MTH0 0 Heart Score: C/O Chest Pain: N/A Risk Factors: Risk Factors: DM, Current or recent (<one month) smoker, HTN, HLP, family h istory of CAD, obesity. Risk Scores: Score 0 - 3: 2.5% MACE over next 6 weeks - Discharge Home Score 4 - 6: 20.3% MACE over next 6 weeks - Admit for Clinical Observation Score 7 - 10: 72.7% MACE over next 6 weeks - Early Invasive Strategies Course & Med Decision Making: Course & Med Decision Making Pertinent Labs and Imaging studies reviewed. (See chart for details) The patient's labs are unremarkable. His CT is negative for acute findings. I have given the patient Protonix, GI cocktail, and Pepcid for his discomfort. He is stable for discharge at this time. He will follow with his primary care physician as needed. [] Dragon Disclaimer: Dragon Disclaimer: This electronic medical record was generated, in whole or in part, using a voice recognition dictation system. Departure Departure: Impression: Primary Impression: Epigastric abdominal pain Disposition: HOME / SELF CARE / HOMELESS Condition: STABLE Referrals: MODESTA ZAFAR MD (PCP) Patient Instructions: Abdominal Pain, [id number] TRISTIAN TIWARI DO Feb 27, 2021 21:56
[2021-02-27] MEDS ORDERED: IOHEXOL 300 MG/ML 75 ML VIAL. IV ONE (22:00)
[2021-02-27] MEDS ORDERED: PANTOPRAZOLE IV 40 MG VIAL. IVP ONE (22:00)
[2021-02-27] MEDS ORDERED: FAMOTIDINE 20 MG/2 ML VIAL IVP ONE (22:00)
[2021-02-27] MEDS ORDERED: KETOROLAC 30 MG/ML VIAL. IVP ONE (22:00)
[2021-02-27] MEDS ORDERED: LIDO:MAALOX 1:1 20 ML SINGLE DOSE. PO ONE (22:00)
[2021-02-27 22:21] LABS: BILIRUBIN,URINE NEG (NEG); CLARITY,URINE HAZY; COLOR,URINE YELLOW; GLUCOSE,URINE NEG (NEG); NITRITE,URINE NEG (NEG); UROBILINOGEN,URINE 0.2 mg/dL (0.2 mg/dL)
[2021-02-27 22:26] LABS: BACTERIA,URINE 0 /HPF (0-FEW); RBC,URINE 0 /HPF (0-2); WBC,URINE OCC /HPF (0-4)
[2021-02-27 23:00] LABS: BASO # 0.1 x10^3/uL (0.0-0.2); BASO % 1 % (0-3); EOS # 0.5 x10^3/uL (0.0-0.7); EOS % 5 % (0-3); HEMATOCRIT 43.9 % (39.0-53.0); HEMOGLOBIN 14.9 g/dL (13.0-17.5); LYMPH # 1.9 x10^3/uL (1.0-4.8); LYMPH % 19 % (24-48); MEAN CORPUSCULAR HEMOGLOBIN 31 pg (25-35); MEAN CORPUSCULAR HGB CONC 34 g/dL (31-37); MEAN CORPUSCULAR VOLUME 91 fL (79-100); MONO # 0.6 x10^3/uL (0.0-1.1); MONO % 7 % (0-9); NEUT # 6.8 x10^3uL (1.8-7.7); NEUT % 69 % (31-73); PLATELET COUNT 241 x10^3/uL (140-400); RED BLOOD COUNT 4.85 x10^6/uL (4.30-5.70); RED CELL DISTRIBUTION WIDTH 13.2 % (11.5-14.5); WHITE BLOOD COUNT 9.9 x10^3/uL (4.0-11.0)
[2021-02-27 23:06] LABS: CALCIUM 8.6 mg/dL (8.5-10.1); GFR 88.3; POTASSIUM 3.4 mmol/L (3.5-5.1)
--- NOTE | 2021-02-27 23:06 | RAD ---
PQRS Compliance Statement: One or more of the following individualized dose reduction techniques were utilized for this examinat ion: 1. Automated exposure control 2. Adjustment of the mA and/or kV according to patient size 3. Use of iterative reconstruction technique CT ABDOMEN+PELVIS W Clinical Indication: Reason: epigastric pain, x3days, H/O DRUG ALCOHOL USE, Comparison: None. Technique: Helical CT imaging of the abdomen and pelvis is performed after 75 cc of Omnipaque 300 IV contrast. Oral contrast not administered. Findings: Minimal bilateral dependent atelectasis. The cardiac size is normal. Cholecystectomy. The liver, spleen, pancreas, adrenal glands, abdominal aorta, and kidneys are normal . The stomach is unremarkable. There is no small bowel obstruction. The appendix is normal. There is no colon wall thickening. No abdominal adenopathy. The urinary bladder is normal. Prostate and seminal vesicles are normal. There is no pelvic free flui d. There is bilateral L5 spondylolysis. No spondylolisthesis is seen. IMPRESSION: No acute abdominal or pelvic abnormality. Electronically signed by: Mehrdad Yost MD (02/27/2021 11:04 PM) [facility]
[2021-02-27 23:13] LABS: ALBUMIN 3.5 g/dL (3.4-5.0); ALBUMIN/GLOBULIN RATIO 1.1 (1.0-1.7); TOTAL BILIRUBIN 0.2 mg/dL (0.2-1.0); TOTAL PROTEIN 6.8 g/dL (6.4-8.2)
== END 2021-02-27 23:42 | disposition home or self-care (01) ==
LOC: ER 20:59
DX: R10.13 Epigastric pain (principal); F17.210 Nicotine dependence, cigarettes, uncomplicated; F12.10 Cannabis abuse, uncomplicated; F15.10 Other stimulant abuse, uncomplicated; F14.10 Cocaine abuse, uncomplicated; Z90.49 Acquired absence of other specified parts of digestive tract
CPT/HCPCS: 36415; 74177; 80053; 81001; 83690; 85025; 96361; 96374; 96375; 99285; C9113; J1885; J2405; J3490; J7030; Q9967